=== PATIENT | female | born 1965 | race Caucasian/White ===

== ENCOUNTER 2022-04-03 16:08 | Emergency (ER) | payer MEDICARE, OTHER ==
[~2022-04-03 16:08] MED LIST: MOTRIN600 MG PO
[2022-04-03] MEDS ORDERED: VALTREX1000 MG PO (17:08)
[2022-04-03] MEDS ORDERED: DICLOFENAC SODI75 MG PO (17:08)
== END 2022-04-03 17:12 | disposition home or self-care (01) ==
LOC: FER 16:08
DX: M79.2 Neuralgia and neuritis, unspecified (principal); J44.9 Chronic obstructive pulmonary disease, unspecified; F17.210 Nicotine dependence, cigarettes, uncomplicated
CPT/HCPCS: 99282